=== PATIENT | male | born 1975 | race Caucasian/White ===

== ENCOUNTER 2017-02-03 16:46 | Emergency (ER) | payer OTHER ==
[2017-02-03 16:52] VITALS: O2SAT 96
--- NOTE | 2017-02-03 18:05 | EDPHY ---
H & P Time Seen by Provider: 02/03/17 17:59 HPI/ROS: CHIEF COMPLAINT: Left rib/abdominal pain. HISTORY OF PRESENT ILLNESS: This patient is a 41 year old male complaining of left rib and left upper quadrant abdominal pain secondary to a fall at work earlier today. 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 He finished his training and continued to work this evening, but his pain has persisted and it hurts to breathe. He noted one rib seemed to be displaced, and noted that applying pressure to it caused pain to shoot around to his back. No nausea, vomiting, or other associated symptoms. REVIEW OF SYSTEMS: Constitutional: No fever, no chills Eyes: No visual changes ENT: No sore throat Respiratory: No cough, no shortness of breath Gastrointestinal: No nausea, no vomiting, no abdominal pain Genitourinary: No hematuria, no dysuria Musculoskeletal: No leg pain or swelling Skin: No rash Neurological: No headache, no numbness, no weakness Psychiatric: No depression Past Medical/Surgical History: Appendectomy Social History: Works with [email or web address]. Smoking Status: Never smoked Physical Exam: General Appearance: Alert, no distress Eyes: Pupils equal and round, no conjunctival pallor or injection ENT, Mouth: Mucous membranes moist Neck: Normal inspection Respiratory: normal inspection, tenderness over anterior left lower ribs, lungs are clear to auscultation Cardiovascular: Regular rate and rhythm Gastrointestinal: abdomen is soft, left upper quadrant tenderness Neurological: A&O, nonfocal, normal gait Skin: Warm and dry, no rash Extremities: Nontender, no pedal edema Psychiatric: Mood and affect normal Constitutional: Initial Vital Signs Temperature (C) 36.7 C 02/03/17 16:50 Heart Rate 105 H 02/03/17 16:50 Respiratory Rate 17 02/03/17 16:50 Blood Pressure 138/95 H 02/03/17 16:50 O2 Sat (%) 96 02/03/17 16:50 O2 Delivery Mode Room Air Allergies/Adverse Reactions: No Known Allergies Allergy (Verified 02/03/17 16:50) Home Medications: Medication Instructions Recorded Hydrocodone/APAP 5/325 [[place] 1 - 2 tab PO Q4H PRN #10 tab 02/03/17 5/325] Medical Decision Making - Diagnostics Imaging Results: CT scan of the abdomen and pelvis reveals a left-sided rib fracture, otherwise normal. Imaging: Discussed imaging studies w/ call center coordinator Radiologist ED Course/Re-evaluation: 41 year old male presenting with left lower rib and left upper quadrant tenderness secondary to injury earlier today. Clinical scenario concerning for splenic injury and likely rib fracture. 19:[address] Barth, radiologist. CT shows possible nondisplaced left anterior eighth rib fracture. No pleural effusion. No evidence of retroperitoneal hemorrhage or organ laceration. No evidence of laceration of the liver, spleen, or kidneys. Results discussed with the patient. Physical exam is unchanged. Plan to discharge home in good condition. Incentive spirometer given. Prescription for [place] given for severe pain. The patient is comfortable with this plan. Differential Diagnosis: Differential diagnosis includes though it is not limited to fracture, pneumothorax, hemothorax, intra-abdominal hemorrhage. - Data Points Medications Given: Discontinued Medications Hydrocodone Bitart/Acetaminophen ([place] 5/325mg Prepack#6) 1 btl TAKEHOME EDNOW ONE Stop: 02/03/17 19:59 Last Admin: 02/03/17 20:09 Dose: 1 btl Departure - Departure Disposition: Home, Routine, Self-Care Clinical Impression: Left rib fracture Qualifiers: Encounter type: initial encounter Rib fracture type: single rib Fracture type: closed Qualified Code(s): S22.32XA - Fracture of one rib, left side, initial encounter for closed fracture Condition: Good Instructions: Hydrocodone/Acetaminophen (By mouth), Rib Fracture (ED) Additional Instructions: 1. Take 600mg ibuprofen every 6-8 hours as needed for pain. You may also take [place], 1 pill every 4 hours as needed for severe pain. 2. Use your incentive spirometer 3-5 times daily as directed. 3. Follow up with a primary care provider for symptoms unresolved. 4. Return to the emergency department for uncontrollable pain, shortness of breath, increased abdominal pain, or other worsening of condition. Referrals: JOSE AYALA [Other] - As per Instructions Sal Medina MD [Medical Doctor] - As per Instructions Stand Alone Forms: Work Limited Duty Prescriptions: Hydrocodone/APAP 5/325 [[place] 5/325] 1 - 2 tab PO Q4H PRN #10 tab PRN Reason: Pain, Moderate Report Scribed for: Julissa Fuentes Report Scribed by: Prerna Joseph Date of Report: 02/03/17 Time of Report: 18:06 Physician Review and Approval Statement: 02/03/17 18:05 Portions of this note were transcribed by a er medical technician. I personally performed a history, physical exam, medical decision making, and confirmed accuracy of information the transcribed note.
[2017-02-03] MEDS ORDERED: IOPAMIDOL (ISOVUE-300) 100 ML BTL ONE (18:39)
[2017-02-03] MEDS ORDERED: HYDROCOD/APAP 5/325 PREPACK#6 BTL TAKEHOME ONE (19:58)
[2017-02-03 20:16] VITALS: BP 137/107; PULSE 102; RESP 18; TEMP 98.2
== END 2017-02-03 20:16 | disposition home or self-care (01) ==
DX: S22.32XA Fracture of one rib, left side, initial encounter for closed fracture (principal); W18.39XA Other fall on same level, initial encounter; Y92.89 Other specified places as the place of occurrence of the external cause; Y99.0 Civilian activity done for income or pay; Y93.89 Activity, other specified
CPT/HCPCS: 82947-QW; Q9967